=== PATIENT | female | born 1940 | race Caucasian/White ===

== ENCOUNTER 2016-09-13 09:52 | Day surgery (SDC) | payer OTHER ==
[~2016-09-13] VITALS: Ht 152.4 cm; Wt 57.6 kg
[2016-09-13] VITALS (11 sets, daily range): BP systolic 127–141; BP diastolic 60–75; PULSE 87–99; RESP 17–24
[2016-09-13] MEDS ORDERED: CEFAZOLIN 1 GM/50 ML (PMX) 50 ML IVPB ONE (10:06)
[2016-09-13] MEDS ORDERED: PROPOFOL 20 ML ONE (10:19)
[2016-09-13] MEDS ORDERED: METOCLOPRAMIDE 10 MG INJ IV PRN (11:00)
[2016-09-13] MEDS ORDERED: MIDAZOLAM 1 MG/ML 2 ML INJ IV PRN (11:00)
[2016-09-13] MEDS ORDERED: DIPHENHYDRAMINE 50 MG INJ IV PRN (11:00)
[2016-09-13] MEDS ORDERED: ONDANSETRON 4 MG INJ IV PRN (11:00)
[2016-09-13] MEDS ORDERED: FENTAnyl 50 MCG/ML VIAL IV PRN ×3 (11:00)
[2016-09-13] MEDS ORDERED: MEPERIDINE 25 MG INJ IV PRN (11:00)
--- NOTE | 2016-09-13 13:49 | GILP ---
DATE OF PROCEDURE: 09/13/2016 PROCEDURE PERFORMED: Percutaneous endoscopic gastrostomy. INDICATION: A 76-year-old female undergoing this procedure for dysphagia. The risks of the procedure, related and unrelated complications, anesthetic risks, alternatives discussed. Informed consent was obtained. DESCRIPTION OF PROCEDURE: The patient was brought to the GI lab, sedated by Dr. Vieira and was given Ancef prior to the procedure. After optimal sedation, scope was passed with much ease into the esophagus, which was grossly within normal limits. Stomach mucosa revealed gastritis. Duodenal bulb was within normal limits. By transillumination and digital palpation technique, appropriate site was chosen on the anterior abdominal wall. Site was sterilized with chlorhexidine solution and 2 percent xylocaine instilled by Safe method. Small incision was made. Through that incision trocar site, into stomach. Stylet was removed. Through the hollow tip of the catheter, blue string was passed and the entire procedure was completed by modified Ponsky technique. The patient was rescoped. The position of the internal bumper was confirmed . She tolerated the procedure very well. IMPRESSION: Successful placement of G-tube done. PLAN: Resume feeding after 6 hours and medication after 3 hours. Abdominal binder all the time. Dictated By: Rip Enriquez MD /shabanat/ec /Document#: [id number] ; DR RASHID
== END 2016-09-13 13:54 | disposition home or self-care (01) ==
LOC: GIL 09:52
PROVIDERS: ATTEND Internal Medicine Gastroenterology
DX: R13.10 Dysphagia, unspecified (principal); I10 Essential (primary) hypertension
CPT/HCPCS: 43246; J0690